=== PATIENT | female | born 1985 | race American Indian/Alaskan Native ===

== ENCOUNTER 2016-07-29 11:16 | Emergency (ER) | payer OTHER, MEDICAID ==
[2016-07-29 11:44] VITALS: BP 126/81
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
[2016-07-29] MEDS ORDERED: NORCO 5/325 PO ONE (14:53)
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
== END 2016-07-29 16:37 | disposition home or self-care (01) ==
LOC: ED 11:16
DX: S16.1XXA Strain of muscle, fascia and tendon at neck level, initial encounter (principal); S39.012A Strain of muscle, fascia and tendon of lower back, initial encounter; S20.219A Contusion of unspecified front wall of thorax, initial encounter; F17.200 Nicotine dependence, unspecified, uncomplicated; V49.69XA Unspecified car occupant injured in collision with other motor vehicles in traffic accident, initial encounter; Y93.89 Activity, other specified; Y99.8 Other external cause status; Y92.89 Other specified places as the place of occurrence of the external cause
CPT/HCPCS: 36415; 70450; 71020; 72100; 72125; 84703